=== PATIENT | male | born 1995 | race Two or more races ===

== ENCOUNTER 2017-09-30 20:44 | Emergency (ER) | payer OTHER ==
[~2017-09-30] VITALS: Ht 175.3 cm; Wt 72.7 kg
[2017-09-30] MEDS ORDERED: ZYRT10TA2 PO (20:53)
[2017-09-30] MEDS ORDERED: CONC54TA4 (20:53)
--- NOTE | 2017-09-30 22:38 | REP ---
Clinical: Trauma with headache . Comparison: 12/10/2014 . Findings: The ventricles, sulci, and cisterns are normal in position and appearance. Sanders-white differentiation is maintained. No acute intracranial hemorrhage, mass/mass effect, pathology or trauma/injury. No evidence for acute infarction. No extra-axial fluid collection. Calvarium is intact. Paranasal sinuses and mastoid air cells are clear. Impression: Normal noncontrast head CT. No evidence for acute intracranial pathology or trauma/injury. Signed by Adin Early MD 09/30/2017 10:30 P
--- NOTE | 2017-09-30 22:42 | REP ---
Clinical: Trauma . Technique: Axial noncontrast images from the skull base to the thoracic inlet with coronal and sagittal re-formations Findings: Normal alignment and lordosis is maintained. Cervical vertebral bodies including transverse processes and spinous processes are intact and there is no evidence for acute fracture / compression injury or subluxation. Incidental congenital nonunion along the anterior and posterior margin of C1. Spinal canal is patent. Posterior elements are intact. Paravertebral soft tissues are normal. Impression: Normal noncontrast cervical spine CT. Congenital nonunion of C1. No evidence for acute pathology or trauma/injury. Signed by Adin Early MD 09/30/2017 10:33 P
--- NOTE | 2017-09-30 23:20 | REPUSA ---
CLINICAL INFORMATION: Pain. TECHNIQUE: Lumbar Spine 5 views. FINDINGS: The vertebral bodies are in satisfactory position and alignment. The vertebral body heights are well- maintained. There are no fractures or destructive lesions. The other osseous structures are intact. I ntervertebral disc spaces are well-maintained. The facet joints are well maintained, without evidence of subluxation. The neural foramina are patent. The surrounding soft tissue structures are normal. IMPRESSION: Unremarkable examination of the lumbar spine. No focal abnormality appreciated.
--- NOTE | 2017-09-30 23:20 | REPUSA ---
Clinical history: Pain. Findings: 4 views of the left knee were obtained. The osseous structures are intact, without evidence of fracture or dislocation. The soft tissues are within normal limits. Impression: No acute findings.
[2017-09-30] MEDS ORDERED: ONDANSETRON 4 MG ORAL DISINTEGRATING TAB (S0181) PO ONE (23:30)
[2017-09-30] MEDS ORDERED: MORPHINE 2 MG/ML 1ML SYRINGE IM ONE (23:30)
[2017-09-30] MEDS ORDERED: MORPHINE 10 MG/ML 1ML VIAL IM ONE (23:30)
--- NOTE | 2017-09-30 23:30 | REPUSA ---
Clinical history: Injury, pain. Findings: The mediastinum and cardiac silhouette are within normal limits. The lungs are clear. No pl eural effusion or pneumothorax is seen. Focused images of the left thoracic ribs do not demonstrate a ny gross abnormality. The osseous structures and soft tissues are unremarkable. Impression: No acute findings. No rib fractures demonstrated.
--- NOTE | 2017-09-30 23:30 | REPUSA ---
Clinical History: Pain. Findings: 3 views of the thoracic spine were obtained. The thoracic vertebral bodies are in satisfact ory position and alignment. There are no fractures or dislocations. The intervertebral disc spaces ar e well-maintained. The surrounding soft tissues are unremarkable. Impression: No acute findings.
[2017-09-30] MEDS ORDERED: NAPR500T3 PO (23:54)
[2017-09-30] MEDS ORDERED: ROBA500T PO (23:54)
[2017-10-01 00:18] VITALS: BP 141/95
== END 2017-10-01 00:34 | disposition home or self-care (01) ==
LOC: M ED 20:44
DX: Z04.1 Encounter for examination and observation following transport accident (principal); S80.02XA Contusion of left knee, initial encounter; V43.52XA Car driver injured in collision with other type car in traffic accident, initial encounter; Y92.410 Unspecified street and highway as the place of occurrence of the external cause; Y93.89 Activity, other specified; Y99.8 Other external cause status; M62.830 Muscle spasm of back; R07.81 Pleurodynia; F90.9 Attention-deficit hyperactivity disorder, unspecified type; Z79.899 Other long term (current) drug therapy

== ENCOUNTER → 2020-01-04 | Outpatient (REF) | payer BC ==
[~2020-01-04] MED LIST: CONC54TA4; NAPR-885 PO; ROBA500T PO; ZYRT10CA5 PO
[2020-01-04 19:02] LABS: FOLATE 8.2 NG/ML
== END ==
LOC: M LAB REF 16:26
PROVIDERS: ATTEND Internal Medicine
DX: D72.819 Decreased white blood cell count, unspecified (principal)